=== PATIENT | female | born 1980 | race Caucasian/White ===

== ENCOUNTER 2019-09-18 04:22 | Emergency (ER) | payer MEDICAID ==
[~2019-09-18] VITALS: Ht 154.9 cm; Wt 63.5 kg
[2019-09-18 04:24] VITALS: BP 144/51
--- NOTE | 2019-09-18 04:35 | NUR ---
39 Y/O FEMALE BROUGHT INTO ER BY EMR. PT STATES SHE HAS HAD UNCONTROLLED VAGINAL BLEEDING, AND CRAMPING X1 DAY 10/10 PAIN. PT HASN'T HAD A REGULAR MENSTRUAL CYCLE X 1 YR. PT STATES SHE WAS TAKING CONTROL TO REGULATE HER MENSTRUAL CYCLE, AND STOPPED MED. DENIES NAUSEA, VOMITING, DIARRHEA. PT STATES BEFORE SHE WAS BROUGHT INTO ER, SHE PASSED A RED BALL OF TISSUE THROUGH VAGINA, AND IS NOW PASSING RED PIECES OF TISSUE. EMS STATED SHE BLED THROUGH AN ABDOMINAL PAD, THAT WAS GIVEN TO HER DURING TRANSPORT TO THE HOSPITAL, AND WAS SATURATED BEFORE THEY ARRIVED AT THE ER. BROUGHT INTO ER WITH 20 GAUGE LAC. R/R EQUAL AND UNLABORED. SIDERAIL X 1, WILL CONTINUE TO MONITOR. NO PMH NKDA
[2019-09-18 05:27] LABS: BASOPHILS % (AUTO) 0.6 % (0.0-2.0); EOSINOPHILS # (AUTO) 0.2 K/uL (0-0.4); EOSINOPHILS % (AUTO) 2.6 % (0.0-4.0); HEMATOCRIT 39.3 % (36-48); HEMOGLOBIN 13.2 g/dL (12.0-16.0); LYMPHOCYTES % (AUTO) 25.4 % (20.5-51.1); MEAN CORPUSCULAR HEMOGLOBIN 29 pg (27-31); MEAN CORPUSCULAR HGB CONC 34 g/dL (33-37); MEAN CORPUSCULAR VOLUME 87.1 fL (80-94); MONOCYTES # (AUTO) 0.7 K/uL (0.8-1.0); MONOCYTES % (AUTO) 9.6 % (1.7-9.3); NEUTROPHILS # (AUTO) 4.8 K/uL (1.8-7.7); NEUTROPHILS % (AUTO) 61.8 % (42.2-75.2); PLATELET COUNT (AUTO) 222 K/uL (140-450); RED BLOOD CELL COUNT(AUTO) 4.51 MIL/uL (4.20-5.40); RED CELL DISTRIBUTION WIDTH 13.7 % (11.6-13.7); WHITE BLOOD COUNT (AUTO) 7.7 K/uL (4.8-10.8)
[2019-09-18 05:54] LABS: APPEARANCE,URINE BLOODY (CLEAR); BILIRUBIN,URINE NEGATIVE (NEGATIVE); BLOOD, URINE 3+ (NEGATIVE); COLOR,URINE RED (YELLOW); LEUKOCYTE ESTERASE ,URINE NEGATIVE (NEGATIVE); NITRITE, URINE NEGATIVE (NEGATIVE); PH,URINE 5.5 (5.0-9.0); UGLUCOSE NEGATIVE (NEGATIVE)
[2019-09-18 05:59] LABS: RBC,URINE >100 /HPF (0-5); WBC,URINE 0-5 /HPF (0-5)
[2019-09-18 06:01] LABS: ALBUMIN 3.2 g/dL (3.4-5.0); ANION GAP 12.8 (8-16); CARBON DIOXIDE 25.8 mmol/L (21-32); CREATININE 0.7 mg/dL (0.6-1.3); POTASSIUM 3.6 mmol/L (3.5-5.1); TOTAL BILIRUBIN 0.3 mg/dL (0.0-1.0)
[2019-09-18 07:06] VITALS: BP 99/61
--- NOTE | 2019-09-18 07:08 | NUR ---
Patient discharged with v/s stable. Written and verbal after care instructions given and explained. Patient verbalized understanding. Ambulatory with steady gait. All questions addressed prior to discharge. Advised to follow up with PMD.
[2019-09-18 09:36] LABS: PROTHROMBIN TIME 9.6 secs (10.8-13.4)
== END 2019-09-18 07:08 | disposition home or self-care (01) ==
LOC: MED 04:22
DX: O03.4 Incomplete spontaneous abortion without complication (principal); N93.9 Abnormal uterine and vaginal bleeding, unspecified
CPT/HCPCS: 36415; 76801; 80053; 81001; 81025; 84702; 85025; 85610; 85730; 86900; 86901; 99284; Q0092